=== PATIENT | female | born 1980 | race Caucasian/White ===

== ENCOUNTER 2017-08-05 10:42 | Inpatient (IN) | payer BC ==
[2017-08-05 12:39] LABS: ABS Basophils 0 10^3/ul (0-0.2); ABS Eosinophils 0.1 10^3/ul (0-0.6); ABS Lymphocytes 3.1 10^3/ul (1.0-4.8); ABS Monocytes 0.4 10^3/ul (0-0.8); ABS Neutrophils 6.9 10^3/ul (1.5-7.7); ABS Nucleated RBC 0 10^3/ul; Eosinophil % 1.3 % (0-6); Hematocrit 37 % (35-47); Hemoglobin 12.5 g/dl (12.0-16.0); Mean Corpuscular HGB Conc 33 g/dl (31-36); Mean Corpuscular Hemoglobin 27 pg (27-31); Mean Corpuscular Volume 81 fL (80-97); Mean Platelet Volume 7.4 um3 (7.4-10.4); Nucleated Red Blood Cells % 0; Platelet Count 299 10^3/ul (150-450); Red Blood Count 4.65 10^6/ul (4.0-5.4); Red Cell Distribution Width 16 % (10.5-15); White Blood Count 10.6 10^3/ul (3.5-10.8)
[2017-08-05 13:07] LABS: EGFR Non-African American 73.1 (>60)
[2017-08-05 13:38] LABS: Urine Appearance Clear; Urine Blood Negative (Negative); Urine Color Straw; Urine Ketones Negative (Negative); Urine Protein Negative (Negative); Urine Specific Gravity 1.003 (1.010-1.030); Urine Urobilinogen Negative (Negative)
[2017-08-05 14:00] LABS: INR 0.82 (0.77-1.02)
[2017-08-05] MEDS ORDERED: Al Hydrox/Mg Hydrox/Simet LIQ* 30 ML UDC PO PRN (14:19)
[2017-08-05] MEDS ORDERED: Acetaminophen TAB* 325 MG PO PRN (14:19)
[2017-08-05] MEDS ORDERED: Gadoteridol* (CONTRAST) 279.3 MG/ML 10 ML IV ONE (15:26)
--- NOTE | 2017-08-05 15:29 | ED ---
Letitia Palencia Nilda, scribed for Brenden Tirado MD on 08/05/17 at 1253 . Neurological HPI - HPI Summary HPI Summary: This patient is a 37 year old F presenting to [facility] accompanied by family with a chief complaint of constant tingling/numbness from feet to chest for the past 10 days. The patient rates the pain 2/10 in severity. Symptoms aggravated and alleviated by nothing. Patient reports fatigue, LE bilat weakness, SOB, unsteadiness, skin insensitivity to temperature, and intermittent VALDIVIA. She states that upon examination by neurologist, she had reduced reflexes. PMHx includes juvenile epilepsy (controlled with Lamictal). - History of Current Complaint Chief Complaint: EDNeurologicalDeficit Stated Complaint: NUMBNESS/WEAKNESS/FATIGUE Time Seen by Provider: 08/05/17 10:55 Hx Obtained From: Patient Onset/Duration: Sudden Onset, Started weeks ago, Still Present Timing: Constant Pain Intensity: 2 Pain Scale Used: 0-10 Numeric Character: Weak - LE, Numbness/Tingling, Sensory Loss, Other: - unsteadiness Aggravating: Nothing Alleviating: Nothing Associated Signs and Symptoms: Positive: Headache, Weakness - Allergy/Home Medications Allergies/Adverse Reactions: Allergies Allergy/AdvReac Type Severity Reaction Status Date / Time No Known Allergies Allergy Verified 08/05/17 10:51 Home Medications: Home Medications Cholecalciferol TAB* [Vitamin D TAB*] 1,000 unit PO DAILY 08/05/17 [History Confirmed 08/05/17] Cyanocobalamin TAB* [Vitamin B12 TAB*] 500 mcg PO DAILY 08/05/17 [History Confirmed 08/05/17] Ethinyl Estradiol/Drospirenone [Drospirenone/Ethinyl Estr 3-0.02 mg] 1 tab PO DAILY 08/05/17 [History Confirmed 08/05/17] Ferrous Sulfate TAB* 325 mg PO DAILY 08/05/17 [History Confirmed 08/05/17] Prazosin CAP* [Minipress CAP*] 2 mg PO BEDTIME 08/05/17 [History Confirmed 08/05] lamoTRIgine TAB(*) [LaMICtal TAB(*)] 150 mg PO BID 08/05/17 [History Confirmed 08/05/17] PMH/Surg Hx/FS Hx/Imm Hx EENT History: Denies: Hx Deafness Neurological History: Reports: Hx Seizures Infectious Disease History: Unable to Obtain/Confirm Infectious Disease History: Denies: Traveled Outside the [place] in Last 30 Days - Family History Known Family History: Positive: Hypertension Negative: Cardiac Disease Review of Systems Positive: Fatigue Positive: Shortness Of Breath Positive: Other - skin insensitivity to temperature Neurological: Other - unsteadiness Positive: Headache - intermittent, Weakness - bilat LE, Paresthesia - feet to chest, Numbness - feet to chest All Other Systems Reviewed And Are Negative: Yes Physical Exam - Summary Physical Exam Summary: Appearance: The patient is well-nourished in no acute distress and in no acute pain. Skin: The skin is warm and dry and skin color reflects adequate perfusion. HEENT: The head is normocephalic and atraumatic. The pupils are equal and reactive. The conjunctivae are clear and without drainage. Nares are patent and without drainage. Mouth reveals moist mucous membranes and the throat is without erythema and exudate. The external ears are intact. The ear canals are patent and without drainage. The tympanic membranes are intact. Neck: the neck is supple with full range of motion and non-tender. There are no carotid bruits. There is no neck vein distension. Respiratory: Chest is non-tender. Lungs are clear to auscultation and breath sounds are symmetrical and equal. Cardiovascular: Heart is regular rate and rhythm. There is no murmur or rub auscultated. There is no peripheral edema and pulses are symmetrical and equal. Abdomen: The abdomen is soft and non-tender. There are normal bowel sounds heard in all four quadrants and there is no organomegaly palpated. Musculoskeletal:Decreased reflexes. There is no back tenderness noted. Extremities are non-tender with full range of motion. There is good capillary refill. There is no peripheral edema or calf tenderness elicited. Neurological: Patient is alert and oriented to person, place and time. Decreased reflexes. Psychiatric: The patient has an appropriate affect and does not exhibit any anxiety or depression. Triage Information Reviewed: Yes Vital Signs On Initial Exam: Initial Vitals Temp Pulse Resp BP Pulse Ox 98.8 F 89 16 140/79 99 08/05/17 10:46 08/05/17 10:46 08/05/17 10:46 08/05/17 10:46 08/05/17 10:46 Vital Signs Reviewed: Yes Diagnostics - Vital Signs Vital Signs Temp Pulse Resp BP Pulse Ox 08/05/17 10:46 98.8 F 89 16 140/79 99 - Laboratory Lab Results: Lab Results 08/05/17 08/05/17 08/05/17 Range/Units 12:30 12:30 12:30 WBC 10.6 (3.5-10.8) 10^3/ul RBC 4.65 (4.0-5.4) 10^6/ul Hgb 12.5 (12.0-16.0) g/dl Hct 37 (35-47) % MCV 81 (80-97) fL MCH 27 (27-31) pg MCHC 33 (31-36) g/dl RDW 16 H (10.5-15) % Plt Count 299 (150-450) 10^3/ul MPV 7.4 (7.4-10.4) um3 Neut % (Auto) 65.2 (38-83) % Lymph % (Auto) 29.0 (25-47) % Prowers % (Auto) 4.0 (0-7) % Eos % (Auto) 1.3 (0-6) % Baso % (Auto) 0.5 (0-2) % Absolute Neuts (auto) 6.9 (1.5-7.7) 10^3/ul Absolute Lymphs (auto) 3.1 (1.0-4.8) 10^3/ul Absolute Monos (auto) 0.4 (0-0.8) 10^3/ul Absolute Eos (auto) 0.1 (0-0.6) 10^3/ul Absolute Basos (auto) 0 (0-0.2) 10^3/ul Absolute Nucleated RBC 0 10^3/ul Nucleated RBC % 0 INR (Anticoag Therapy) (0.77-1.02) Sodium 137 L (139-145) mmol/L Potassium 4.3 (3.5-5.0) mmol/L Chloride 103 (101-111) mmol/L Carbon Dioxide 24 (22-32) mmol/L Anion Gap 10 (2-11) mmol/L BUN 13 (6-24) mg/dL Creatinine 0.88 (0.51-0.95) mg/dL Est GFR ( Amer) 94.0 (>60) Est GFR (Non-Af Amer) 73.1 (>60) BUN/Creatinine Ratio 14.8 (8-20) Glucose 96 (70-100) mg/dL Lactic Acid 1.4 (0.5-2.0) mmol/L Calcium 9.4 (8.6-10.3) mg/dL Total Bilirubin 0.30 (0.2-1.0) mg/dL AST 10 L (13-39) U/L ALT 10 (7-52) U/L Alkaline Phosphatase 79 (34-104) U/L Troponin I 0.00 (<0.04) ng/mL Total Protein 7.1 (6.4-8.9) g/dL Albumin 3.9 (3.2-5.2) g/dL Globulin 3.2 (2-4) g/dL Albumin/Globulin Ratio 1.2 (1-3) Vitamin B12 279 (180-914) pg/mL TSH 2.03 (0.34-5.60) mcIU/mL Urine Color Urine Appearance Urine pH (5-9) Ur Specific Marianna (1.010-1.030) Urine Protein (Negative) Urine Ketones (Negative) Urine Blood (Negative) Urine Nitrate (Negative) Urine Bilirubin (Negative) Urine Urobilinogen (Negative) Ur Leukocyte Esterase (Negative) Urine WBC (Auto) (Absent) Urine RBC (Auto) (Absent) Ur Squamous Epith Cells (Absent) Urine Bacteria (Absent) Urine Glucose (Negative) 08/05/17 08/05/17 Range/Units 12:30 13:10 WBC (3.5-10.8) 10^3/ul RBC (4.0-5.4) 10^6/ul Hgb (12.0-16.0) g/dl Hct (35-47) % MCV (80-97) fL MCH (27-31) pg MCHC (31-36) g/dl RDW (10.5-15) % Plt Count (150-450) 10^3/ul MPV (7.4-10.4) um3 Neut % (Auto) (38-83) % Lymph % (Auto) (25-47) % Prowers % (Auto) (0-7) % Eos % (Auto) (0-6) % Baso % (Auto) (0-2) % Absolute Neuts (auto) (1.5-7.7) 10^3/ul Absolute Lymphs (auto) (1.0-4.8) 10^3/ul Absolute Monos (auto) (0-0.8) 10^3/ul Absolute Eos (auto) (0-0.6) 10^3/ul Absolute Basos (auto) (0-0.2) 10^3/ul Absolute Nucleated RBC 10^3/ul Nucleated RBC % INR (Anticoag Therapy) 0.82 (0.77-1.02) Sodium (139-145) mmol/L Potassium (3.5-5.0) mmol/L Chloride (101-111) mmol/L Carbon Dioxide (22-32) mmol/L Anion Gap (2-11) mmol/L BUN (6-24) mg/dL Creatinine (0.51-0.95) mg/dL Est GFR ( Amer) (>60) Est GFR (Non-Af Amer) (>60) BUN/Creatinine Ratio (8-20) Glucose (70-100) mg/dL Lactic Acid (0.5-2.0) mmol/L Calcium (8.6-10.3) mg/dL Total Bilirubin (0.2-1.0) mg/dL AST (13-39) U/L ALT (7-52) U/L Alkaline Phosphatase (34-104) U/L Troponin I (<0.04) ng/mL Total Protein (6.4-8.9) g/dL Albumin (3.2-5.2) g/dL Globulin (2-4) g/dL Albumin/Globulin Ratio (1-3) Vitamin B12 (180-914) pg/mL TSH (0.34-5.60) mcIU/mL Urine Color Straw Urine Appearance Clear Urine pH 7.0 (5-9) Ur Specific Marianna 1.003 L (1.010-1.030) Urine Protein Negative (Negative) Urine Ketones Negative (Negative) Urine Blood Negative (Negative) Urine Nitrate Negative (Negative) Urine Bilirubin Negative (Negative) Urine Urobilinogen Negative (Negative) Ur Leukocyte Esterase 1+ A (Negative) Urine WBC (Auto) Trace(0-5/hpf) (Absent) Urine RBC (Auto) Trace(0-2/hpf) (Absent) Ur Squamous Epith Cells Present A (Absent) Urine Bacteria Absent (Absent) Urine Glucose Negative (Negative) Result Diagrams: 08/05/17 12:30 08/05/17 12:30 Lab Statement: Any lab studies that have been ordered have been reviewed, and results considered in the medical decision making process. Course/Dx - Course Course Of Treatment: Ms. Warren was sent in by Dr. Floyd for a W/U for possible Guillan Mason. She was stable in the ED and the hospitalist service is admitting her. - Diagnoses Provider Diagnoses: Distal paresthesia - Physician Notifications Discussed Care Of Patient With: Bhaskar Richards - Hospitalist Time Discussed With Above Provider: 12:55 Instructed by Provider To: Admit As Inpatient Discharge - Sign-Out/Discharge Documenting (check all that apply): Discharge/Admit/Transfer - Discharge Plan Condition: Stable Disposition: ADMITTED TO [facility] Referrals: Rachel Gonsales MD [Primary Care Provider] - - Billing Disposition and Condition Condition: STABLE Disposition: [facility] [place] The documentation as recorded by the Letitia redman Nilda accurately reflects the service I personally performed and the decisions made by , Brenden Tirado MD.
--- NOTE | 2017-08-05 15:53 | RAD ---
HISTORY: Guillain Donie syndrome, ascending numbness COMPARISONS: March 30, 2003 TECHNIQUE: The following sequences were obtained of the head: Sagittal T1-weighted images, axial T2-weighted images, axial FLAIR images, axial susceptibility weighted images, axial T1-weighted images. Additionally, axial diffusion-weighted images were obtained with calculated apparent diffusion coefficients. Additionally, sagittal, coronal, and axial T1-weighted images were obtained after contrast enhancement with a gadolinium-based intravenous contrast agent. FINDINGS: HEMORRHAGE/INFARCT: There is no hemorrhage or acute infarct. MASSES/SHIFT: There is no mass or shift. EXTRA-AXIAL SPACES/MENINGES: There are no extra-axial fluid collections. SULCI AND VENTRICLES: The sulci and ventricles are normal in size and position for the patient's stated age. CEREBRUM: There are multiple foci of elevated T2/FLAIR signal within the periventricular and subcortical white matter, including lesions that are oriented perpendicular to the surface of the corpus callosum. Several of these lesions enhance, including a 0.9 cm lesion of the left parietal lobe. BRAINSTEM: There is a nonenhancing lesion of the right middle cerebellar peduncle on axial image 10 measuring 0.7 cm in size. CEREBELLUM: There are small enhancing foci of elevated signal within the cerebellar hemispheres bilaterally. The cerebellar tonsils are normal in size and position. SELLA: The sella is normal. PINEAL: The pineal region is clear. CP ANGLE/TEMPORAL BONES: The labyrinthine structures are grossly normal. VESSELS: Normal flow-voids are noted within the visualized vertebral vasculature. DIFFUSION ABNORMALITIES: There are no diffusion abnormalities. PARANASAL SINUSES/MASTOIDS: The paranasal sinuses are clear. ORBITS: The orbits are unremarkable. BONES AND SOFT TISSUE: No bone or soft tissue abnormalities are noted. OTHER: There is an enhancing lesion of the upper cervical cord. IMPRESSION: THERE HAS BEEN INTERVAL DEVELOPMENT OF MULTIFOCAL WHITE MATTER SIGNAL ABNORMALITIES WITHIN THE CEREBRAL HEMISPHERES, BRAINSTEM, CEREBELLUM, AND UPPER CERVICAL CORD. THE IMAGING APPEARANCE IS MOST SUGGESTIVE OF DEMYELINATING PLAQUE IN THE SETTING OF MULTIPLE SCLEROSIS. THERE ARE MULTIPLE ENHANCING LESIONS WHICH SUGGEST ACTIVE INFLAMMATION.
[2017-08-05] MEDS ORDERED: Lidocaine 1%* 5 ML VIAL ONE (15:56)
--- NOTE | 2017-08-05 16:00 | RAD ---
HISTORY: Ascending numbness COMPARISONS: MRI of the brain dated August 05, 2017 TECHNIQUE: The following sequences were obtained of the cervical spine: Sagittal and axial T1- and T2-weighted images, sagittal STIR images, and axial gradient echo images. Additionally, axial and sagittal T1 weighted images were obtained after contrast enhancement with a gadolinium-based intravenous contrast agent.. FINDINGS: BRAIN AND SPINAL CORD: There is multifocal elevated T2/STIR signal within the cervical cord, the largest lesion is noted opposite of C4 measuring approximately 0.7 cm transversely and 1 cm in craniocaudal dimension. There is an enhancing lesion of the upper cervical cord opposite of C2 measuring 0.3 x 0.8 cm in size. ALIGNMENT: There is straightening of the normal cervical lordosis. The alignment is otherwise normal. VERTEBRAL BODIES: There is mild anterolateral marginal osteophyte formation. JOINTS: There is no subluxation or dislocation. MUSCULATURE: Unremarkable INTERVERTEBRAL DISCS: There is diffuse loss of intervertebral disc height and T2 signal throughout the spine. AXIAL IMAGES: C2-C3: There is no disc herniation, spinal stenosis, or neuroforaminal narrowing. C3-C4: There is no disc herniation, spinal stenosis, or neuroforaminal narrowing. C4-C5: There is no disc herniation, spinal stenosis, or neuroforaminal narrowing. C5-C6: There is no disc herniation, spinal stenosis, or neuroforaminal narrowing. C6-C7: There is no disc herniation, spinal stenosis, or neuroforaminal narrowing. C7-T1: There is no disc herniation, spinal stenosis, or neuroforaminal narrowing. SOFT TISSUES: The visualized soft tissues of the neck are unremarkable. OTHER: None. IMPRESSION: THERE IS MULTIFOCAL ELEVATED T2/FLAIR SIGNAL WITHIN THE CERVICAL CORD, INCLUDING AN ENHANCING LESION OF SOME OF C2. GIVEN THE FINDINGS ON MRI OF THE BRAIN, THIS IS MOST SUGGESTIVE OF MULTIFOCAL DEMYELINATING PLAQUE IN THE SETTING OF MULTIPLE SCLEROSIS, WITH ENHANCEMENT SUGGESTIVE OF AN AREA OF ACTIVE INFLAMMATION.
--- NOTE | 2017-08-05 17:34 | HP ---
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 The patient was seen by Dr. Floyd (neurologist) who referred the patient to the ED for further evaluation. Diana initially experienced lower extremity numbness that was gradual in onset. The numbness then became more of a tingling and mild burning sensation that ascended towards the abdomen and pelvis region, and now in the upper extremities. She denied any focal weakness but does experience fatigue, especially the last 4-5 days. The numbness sensation is fixed and seems to be getting worst. She denied any headaches or visual disturbance. She had similar presentation in January 2017 where she felt numbness on the right side of the arm and leg. She had gait imabalnce that time for a few days and subsequently fell. She denied any loss of consciousness or headache. She thought her numbness in January spontaneously resolved after a few weeks. She was never hospitalized. Today, she denied any impairment in her bowel or bladder functions. She denied any shooting pain down her spine. She is experiencing a tight sensation around her upper to mid abdomen region which is new. She denied SOB. Of note, the patient reported seeing a tick on her leg in May that she removed. She removed the tick and did not notice a rash. She does experience dry mouth but relates that to chronic lamotrigine use. IMAGING STUDIES: An MRI brain and C spine with and without contrast was obtained today. I personally reviewed the studies. There is evidence of multifocal T2 lesions in the cerebral cortex near the juxtacortical and periventricular region, brainstem , and cervical spine with gadolinium enhancing lesions seen suggestive of active demyelination. There is no evidence of stroke or large neoplastic lesions. She also has areas of T1 holes seen diffusely, largest one near the left occipital horn. 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 - Medications/Allergies Allergies/Adverse Reactions: Allergies Allergy/AdvReac Type Severity Reaction Status Date / Time No Known Allergies Allergy Verified 08/05/17 10:51 Medications: Current Medications Acetaminophen (Tylenol Tab*) 650 mg PO Q4H PRN PRN Reason: FEVER/PAIN Al Hydrox/Mg Hydrox/Simethicone (Maalox Plus*) 30 ml PO Q6H PRN PRN Reason: INDIGESTION Ethinyl Estradiol/Drospirenone (Loryna 3 Mg-0.02 Mg Tablet) 1 each PO DAILY [facility] Methylprednisolone Sodium Succinate 1,000 mg/ Sodium Chloride 1,000 mls @ 100 mls/hr IVPB DAILY EMIGDIO Stop: 08/07/17 23:59 Lamotrigine (Lamictal Tab(*)) 150 mg PO BID EMIGDIO Pantoprazole Sodium (Protonix Tab (Nf)) 40 mg PO DAILY EMIGDIO Prazosin HCl (Minipress Cap*) 2 mg PO BEDTIME EMIGDIO Exam - Exam Vital Signs: Vital Signs (72 hours) 08/05/17 08/05/17 08/05/17 10:46 12:34 12:35 Temperature 98.8 F Pulse Rate 89 90 95 Respiratory 16 Rate Blood Pressure 140/79 158/79 (mmHg) O2 Sat by Pulse 99 94 96 Oximetry 08/05/17 08/05/17 08/05/17 13:00 13:35 14:00 Temperature Pulse Rate 86 95 91 Respiratory Rate Blood Pressure 150/98 (mmHg) O2 Sat by Pulse 96 96 96 Oximetry 08/05/17 08/05/17 08/05/17 14:05 16:25 16:26 Temperature Pulse Rate 90 91 94 Respiratory Rate Blood Pressure 182/155 143/86 (mmHg) O2 Sat by Pulse 97 96 96 Oximetry General: Alert, Oriented x3, Cooperative, No acute distress HEENT: Atraumatic, PERRLA, EOMI Lungs: Clear to auscultation, Normal air movement Cardiovascular: Regular rate, Normal S1, Normal S2 Abdomen: Normal bowel sounds, Soft Extremities: No clubbing, No cyanosis, No tenderness/swelling Skin: No rashes Neurological: Normal gait, Normal speech, Strength at 5/5 X4 ext - 5/5 strength throughout except for 4/5 strength to dorsal flexion of the ankle on the left. , Normal tone, Cranial nerves 3-12 NL - Reflexes: trace throughout could be due to adiposity. Sensation: sensory level at the mid thoracic region. There is normal vibratory sensation and propioception at the toes. , Other Psych/Mental Status: Mental status NL, Mood NL Assessment/Plan - Assessment/Plan Assessment: Mrs. Diana Warren is a 37-year-old female with a 10 day history of generalized paresthesias and fatigue. She also complained of gait imbalance and an episode of self limiting right sara-paresthesias in January 2017. On neurological examination, she has a sensory level in the mid thoracic region and mild weakness to left ankle dorsiflexion. Surprisingly, she has no evidence of upper motor neuron signs. MRIs brain and C spine showed evidence of underlying chronic on acute demyelinating disease. Given the patient's age, clinical history, and radiographic findings, I suspect she has underlying demyelinating disease such as relapsing-remitting multiple sclerosis with current having a flare-up. Other differential diagnosis to include would be autoimmune disease such as lupus or Sjogrens, Devic's disease (less likely since she has no visual disturbance), or lyme disease (also less likely since she has no symptoms of radiculopathy or findings of neuropathy on exam). The patient does meet the Conn's criteria for dissemination in time and space given the T1 holes, supra-tentorial and infratentorial lesions, and cervical spine lesions. The enhancement suggests acute and active lesions. Plan: I recommend admitting the patient to the hospitalist service for evaluation and treatment of relapsing-remitting multiple sclerosis. MS mimickers will need to be excluded. I have ordered the followin. Added to the CSF analysis: oligoclonal bands, IGG index, VDRL, NARESH, NMO, and Lyme IGG/IGM 2. I also ordered the following labs: vitamin B12, vitamin D (most common environmental factor to MS), ESTRELLA, SSA, SSB, and serum oligoclonal bands. 3. Since she has a sensory level in the mid thoracic region, I ordered an MRI T Spine with and without contrast to evaluate for any demyelination in the T spine. 4. Start Solu-medrol 1,000 mg IV x 1 daily for 3 days. If symptoms do not improve, we may increase it to 5 days. Explained the side effects of steroids. 5. Started protonix 40 mg PO daily while on steroids 6. Please start DVT prophylaxis 7. Neuro checks every 4 hours 8. Discussed fall precautions I will continue to follow. 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
[2017-08-05] MEDS: Omeprazole CAP* 20 MG PO SCH (19:35)
[2017-08-05] MEDS: methylPREDNISolone SOD SUCC* 1,000 MG in NS 0.9% 1000 ML* 1,000 ML IVPB SCH (19:36)
[2017-08-05] MEDS: lamoTRIgine TAB(*) 100 MG PO SCH (22:35)
[2017-08-05] MEDS: Prazosin CAP* 1 MG PO SCH (22:36)
[2017-08-06] MEDS: Ibuprofen TAB* 400 MG PO PRN ×3 (00:09→20:53)
[2017-08-06] MEDS: Zolpidem TAB* 5 MG PO PRN ×2 (00:09→22:48)
--- NOTE | 2017-08-06 01:05 | HP ---
CC: Dr. Gonsales * HISTORY AND PHYSICAL: DATE OF ADMISSION: 08/05/17 PROVIDER: Zena Easton NP. PRIMARY CARE PROVIDER: Dr. Gonsales. ATTENDING PHYSICIAN WHILE IN THE HOSPITAL: Dr. Bhaskar Richards * (dictated by Zena Easton NP). CHIEF COMPLAINT: 1. Numbness and tingling to extremities. 2. Rule out Guillain-Eddyville syndrome. HISTORY OF PRESENT ILLNESS: Ms. Warren is a 37-year-old female who carries a past medical history of juvenile epilepsy, who presented to the emergency room after being evaluated at Dr. Floyd's office today for generalized numbness and tingling to extremities, waist that has progressively gotten worse since . The patient reports that on 07/26/17, she had numbness and tingling in her finger and toes and then on 07/27/17 and 07/28/17, it started to spread upper legs and upper arms and progressed to upper body to reaching the base of her neck. She does report that she sometimes feels like her neck and throat feel numb. For these symptoms, she was seen and evaluated at Dr. Floyd's office, who felt that she needed to have further evaluation hospital admission to rule out Guillain-Eddyville syndrome, so she was sent to the hospital for further evaluation. She denies any fevers. She denies any recent illnesses. Denies any recent sick contacts. She does report that she felt a little sweaty at night for the past couple of nights. She denies any nausea, vomiting, or diarrhea. She denies any abdominal pain. She denies any chest pain or shortness of breath. She denies any dysuria, loss of consciousness. Given her progressive symptoms of increased numbness and tingling to her extremities, we were asked to see and evaluate her because of these symptoms. PAST MEDICAL HISTORY: Significant for juvenile epilepsy. PAST SURGICAL HISTORY: 1. Appendectomy. 2. Cholecystectomy. 3. Tonsillectomy. HOME MEDICATIONS: Include: 1. Lamictal 150 mg p.o. b.i.d. 2. Prazosin 2 mg p.o. at bedtime. 3. Keturah control pill. ALLERGIES TO MEDICATIONS: No known drug allergies. FAMILY HISTORY: Mother and father with history of hypertension. Grandmother with history of diabetes, cancer. Grandmother had possible cervical cancer. SOCIAL HISTORY: Denies tobacco use. Denies alcohol or drug use. She currently works for [employer]. She is single. She is a full code. Surrogate decision maker are her parents, Devi Warren. Her phone number is [phone]. REVIEW OF SYSTEMS: There was no documented fever. There has been no significant weight change. She does report some loss of appetite x1 week. She denies any chest pain. No edema. She does report occasional cough that is nonproductive. Denies any hemoptysis or shortness of breath. She does report mild nausea. Denies any vomiting. Denies diarrhea. Denies any abdominal pain. There has been no hematuria or dysuria. She does report some weakness into her lower extremities and some numbness and tingling in all 4 extremities that has progressed since 07/26/17. She denies any visual complaints. She does report one episode of difficulty swallowing. She reports that she felt like she needed to swallow twice to swallow her food but that episode has only occurred twice. Musculoskeletal: She does report some joint aches. She denies any muscle aches. Skin: There is no rashes or lesions. She denies any depression or anxiety. PHYSICAL EXAMINATION GENERAL: At this time, Ms. Warren is a 37-year-old female who appears well, sitting on the edge of the stretcher in the emergency room. She does not appear to be in any acute distress. VITAL SIGNS: Temperature was 98.8, heart rate was 89, respirations 16, O2 saturation was 99% on room air, blood pressure 140/79. HEENT: Head is atraumatic, normocephalic. Eyes: EOMs are intact. Sclerae anicteric and not pale. Oral mucosa appears to be moist. There is no oropharyngeal erythema. NECK: Supple. LUNGS: Clear to auscultation bilaterally. No wheezes, rales, or rhonchi. CARDIAC: S1, S2. Regular rate and rhythm. There is no murmurs, rubs, or gallops. ABDOMEN: Soft and nontender. Bowel sounds are present x4. EXTREMITIES: Pulses are +2 throughout. She is able to move all 4 extremities. Upper extremity strength is 5/5. Lower extremity strength is 4/5. NEUROLOGIC: She is awake, alert, and oriented x3. Hand dovetailer are equal. Tongue is midline. Speech is clear. She does have decreased reflexes in her lower extremities. SKIN: Intact. DIAGNOSTIC STUDIES AND LABORATORY DATA: WBCs 10.6, RBCs 4.65, hemoglobin 12.5 , hematocrit was 37, platelet count was 299. INR was 0.82. Chemistry: Sodium 137, potassium 4.3, chloride 103, carbon dioxide was 24, BUN was 13, creatinine 0.88, glucose is 96, lactic acid was 1.4, calcium 9.4. Total bilirubin 0.30, ASTs were 10, ALTs were 10. Troponin was 0. TSH was 2.03. Urine specific gravity was 1.003; urine protein, urine ketones, urine blood, urine nitrites, urine bilirubin, and urine urobilinogen were all negative. Urine leukocyte esterase was 1+. Urine wbc's were trace, urine rbc's were trace. Urine squamous epithelial cells present. Bacteria was absent and glucose was also negative. ASSESSMENT AND PLAN: Ms. Warren is a 37-year-old female that presented to the emergency room after being evaluated at Dr. Floyd's office for generalized numbness and tingling to her extremities that has progressively gotten worse since 07/26/17. She was sent for further evaluation. She will be admitted for: 1. Rule out Guillain-Eddyville syndrome. She will have an MRI of the brain and MRI of the C-spine. She will also have an LP completed with cultures, protein, glucose, and cell count. Neurology was also consulted. is aware. Recommendations will be appreciated. She will be admitted to the medical floor and observed, and proceed with Neurology's recommendations. 2. Epilepsy. We will continue on her Lamictal 150 mg p.o. b.i.d. 3. FEN. She can have a regular diet. 4. Code status. She is a full code. 5. DVT prophylaxis. I will place her on MATTEO stocking and ambulation. 6. Disposition. She will be placed inpatient. TIME SPENT: Time spent on this admission was approximately 6 minutes; greater than half the time was spent [id number] with the patient, obtaining history and physical, the other half time was spent going over the patient's plan of care and implementing that plan of care. I have discussed this with my attending, Dr. Bhaskar Richards, and he is in agreement with my plan. ZENA EASTON, PET ADOPTION COUNSELOR [id number]/[facility] #: [id number] [facility]OSPITALJose Alberto
[2017-08-06 06:43] LABS: ABS Basophils 0 10^3/ul (0-0.2); ABS Eosinophils 0 10^3/ul (0-0.6); ABS Lymphocytes 1.5 10^3/ul (1.0-4.8); ABS Monocytes 0 10^3/ul (0-0.8); ABS Neutrophils 7.1 10^3/ul (1.5-7.7); ABS Nucleated RBC 0 10^3/ul; Eosinophil % 0 % (0-6); Hematocrit 40 % (35-47); Lymphocyte % 17.2 % (25-47); Mean Corpuscular HGB Conc 33 g/dl (31-36); Mean Corpuscular Hemoglobin 26 pg (27-31); Mean Corpuscular Volume 81 fL (80-97); Mean Platelet Volume 7.9 um3 (7.4-10.4); Nucleated Red Blood Cells % 0; Platelet Count 319 10^3/ul (150-450); Red Blood Count 4.94 10^6/ul (4.0-5.4); Red Cell Distribution Width 16 % (10.5-15); White Blood Count 8.6 10^3/ul (3.5-10.8)
[2017-08-06 07:06] LABS: EGFR Non-African American 82.8 (>60)
[2017-08-06] MEDS: lamoTRIgine TAB(*) 100 MG PO SCH ×2 (08:27→20:25)
[2017-08-06] MEDS: Omeprazole CAP* 20 MG PO SCH (08:27)
[2017-08-06] MEDS: methylPREDNISolone SOD SUCC* 1,000 MG in NS 0.9% 1000 ML* 1,000 ML IVPB SCH (09:14)
[2017-08-06] MEDS ORDERED: Nystatin TOP POWDER* 15 GM BTL TOPICAL SCH (10:30)
[2017-08-06] MEDS ORDERED: Gadoteridol* (CONTRAST) 279.3 MG/ML 10 ML IV ONE (11:51)
--- NOTE | 2017-08-06 13:13 | RAD ---
HISTORY: Paresthesias of chest and abdomen COMPARISONS: MRI of the cervical spine dated August 05, 2017, MRI of the brain dated August 05, 2017 TECHNIQUE: The following sequences were obtained of the thoracic spine: Sagittal and axial T1- and T2-weighted images, coronal T2-weighted images, and sagittal STIR images. Additionally, axial and sagittal T1 weighted images were obtained after contrast enhancement with a gadolinium-based intravenous contrast agent.. FINDINGS: Evaluation limited by patient motion artifact. Localization is based on counting from C2 SPINAL CORD, CONUS, AND CAUDA EQUINA: The visualized spinal cord, conus, and cauda equina are normal in caliber, position, and signal intensity. There is mild prominence of the central canal without marilyn syringohydromyelia. ALIGNMENT: The alignment is normal. VERTEBRAL BODIES: The bones are normal in signal intensity. The vertebral bodies are preserved in height. JOINTS: There is no subluxation or dislocation. MUSCULATURE: Unremarkable INTERVERTEBRAL DISCS: The intervertebral discs are normal in height and T2 signal AXIAL IMAGES: There is no central canal stenosis or neuroforaminal narrowing. SOFT TISSUES: The visualized soft tissues of the chest and upper abdomen are unremarkable. OTHER: There is no abnormal enhancement. As noted on the MRI of the cervical spine, there is elevated signal within the cervical cord. IMPRESSION: NO ABNORMAL SIGNAL OR ABNORMAL ENHANCEMENT OF THE THORACIC CORD. NO SIGNIFICANT NEURAL FORAMINAL NARROWING OR CENTRAL CANAL STENOSIS.
--- NOTE | 2017-08-06 14:51 | PN ---
Subjective Date of Service: 08/06/17 Interval History: Patient has persistent numbness and tingling in arms and weakness in lags. Has constrictive feeling around abdomen which has not been getting worse or better. Patient states she has been having subjective fevers for the past couple days including most recently last evening. No reaction to steroids. No Cp, SOB, N/V, abdominal pain, dysuria, rash, or other pain. Family History: Unchanged from Admission Social History: Unchanged from Admission Past Medical History: Unchanged from Admission Objective Active Medications: Acetaminophen (Tylenol Tab*) 650 mg PO Q4H PRN PRN Reason: FEVER/PAIN Last Admin: 08/05/17 21:04 Dose: 650 mg Al Hydrox/Mg Hydrox/Simethicone (Maalox Plus*) 30 ml PO Q6H PRN PRN Reason: INDIGESTION Ethinyl Estradiol/Drospirenone (Loryna 3 Mg-0.02 Mg Tablet) 1 each PO BEDTIME [facility] Guaifenesin (Mucinex*) 600 mg PO BID [facility] Methylprednisolone Sodium Succinate 1,000 mg/ Sodium Chloride 1,000 mls @ 100 mls/hr IVPB DAILY [facility] Stop: 08/07/17 23:59 Last Admin: 08/06/17 09:14 Dose: 100 mls/hr Ibuprofen (Motrin Tab*) 400 mg PO Q6H PRN PRN Reason: PAIN Last Admin: 08/06/17 12:26 Dose: 400 mg Lamotrigine (Lamictal Tab(*)) 150 mg PO BID [facility] Last Admin: 08/06/17 08:27 Dose: 150 mg Omeprazole (Prilosec Cap*) 20 mg PO DAILY@0730 [facility] Last Admin: 08/06/17 08:27 Dose: 20 mg Prazosin HCl (Minipress Cap*) 2 mg PO BEDTIME [facility] Last Admin: 08/05/17 22:36 Dose: 2 mg Zolpidem Tartrate (Ambien Tab*) 5 mg PO BEDTIME PRN PRN Reason: INSOMNIA Last Admin: 08/06/17 00:09 Dose: 5 mg Vital Signs - 8 hr 08/06/17 08/06/17 08/06/17 07:31 08:34 13:46 Temperature 97.7 F 98.1 F Pulse Rate 97 72 Respiratory 16 16 16 Rate Blood Pressure 134/83 125/76 (mmHg) O2 Sat by Pulse 96 98 Oximetry Oxygen Devices in Use Now: None Appearance: Patient is a 37yo female who appears stated age and is sitting in the bed in NAD. Eyes: No Scleral Icterus, PERRLA Ears/Nose/Mouth/Throat: NL Teeth, Lips, Gums, Clear Oropharnyx, Mucous Membranes Moist Neck: NL Appearance and Movements; NL JVP, Trachea Midline Respiratory: Symmetrical Chest Expansion and Respiratory Effort, Clear to Auscultation Cardiovascular: NL Sounds; No Murmurs; No JVD, RRR, No Edema Abdominal: NL Sounds; No Tenderness; No Distention, No Hepatosplenomegaly Lymphatic: No Cervical Adenopathy Extremities: No Edema, No Clubbing, Cyanosis Skin: No Rash or Ulcers, No Nodules or Sclerosis Neurological: Alert and Oriented x 3, - - CN II-XII intact. Diminished sensation on right arm to light touch. 4/5 weakness in left leg in all muscle groups. Reflexes and cerebellar testing unremarkable. Result Diagrams: 08/06/17 05:57 08/06/17 05:57 Additional Lab and Data: Lab Results 08/05/17 08/05/17 08/05/17 Range/Units 12:30 12:30 12:30 WBC 10.6 (3.5-10.8) 10^3/ul RBC 4.65 (4.0-5.4) 10^6/ul Hgb 12.5 (12.0-16.0) g/dl Hct 37 (35-47) % MCV 81 (80-97) fL MCH 27 (27-31) pg MCHC 33 (31-36) g/dl RDW 16 H (10.5-15) % Plt Count 299 (150-450) 10^3/ul MPV 7.4 (7.4-10.4) um3 Neut % (Auto) 65.2 (38-83) % Lymph % (Auto) 29.0 (25-47) % Yates % (Auto) 4.0 (0-7) % Eos % (Auto) 1.3 (0-6) % Baso % (Auto) 0.5 (0-2) % Absolute Neuts (auto) 6.9 (1.5-7.7) 10^3/ul Absolute Lymphs (auto) 3.1 (1.0-4.8) 10^3/ul Absolute Monos (auto) 0.4 (0-0.8) 10^3/ul Absolute Eos (auto) 0.1 (0-0.6) 10^3/ul Absolute Basos (auto) 0 (0-0.2) 10^3/ul Absolute Nucleated RBC 0 10^3/ul Nucleated RBC % 0 INR (Anticoag Therapy) (0.77-1.02) Sodium 137 L (139-145) mmol/L Potassium 4.3 (3.5-5.0) mmol/L Chloride 103 (101-111) mmol/L Carbon Dioxide 24 (22-32) mmol/L Anion Gap 10 (2-11) mmol/L BUN 13 (6-24) mg/dL Creatinine 0.88 (0.51-0.95) mg/dL Est GFR ( Amer) 94.0 (>60) Est GFR (Non-Af Amer) 73.1 (>60) BUN/Creatinine Ratio 14.8 (8-20) Glucose 96 (70-100) mg/dL Lactic Acid 1.4 (0.5-2.0) mmol/L Calcium 9.4 (8.6-10.3) mg/dL Total Bilirubin 0.30 (0.2-1.0) mg/dL AST 10 L (13-39) U/L ALT 10 (7-52) U/L Alkaline Phosphatase 79 (34-104) U/L Troponin I 0.00 (<0.04) ng/mL Total Protein 7.1 (6.4-8.9) g/dL Albumin 3.9 (3.2-5.2) g/dL Globulin 3.2 (2-4) g/dL Albumin/Globulin Ratio 1.2 (1-3) Vitamin B12 279 (180-914) pg/mL TSH 2.03 (0.34-5.60) mcIU/mL Urine Color Urine Appearance Urine pH (5-9) Ur Specific Chester (1.010-1.030) Urine Protein (Negative) Urine Ketones (Negative) Urine Blood (Negative) Urine Nitrate (Negative) Urine Bilirubin (Negative) Urine Urobilinogen (Negative) Ur Leukocyte Esterase (Negative) Urine WBC (Auto) (Absent) Urine RBC (Auto) (Absent) Ur Squamous Epith Cells (Absent) Urine Bacteria (Absent) Urine Glucose (Negative) 08/05/17 08/05/17 Range/Units 12:30 13:10 WBC (3.5-10.8) 10^3/ul RBC (4.0-5.4) 10^6/ul Hgb (12.0-16.0) g/dl Hct (35-47) % MCV (80-97) fL MCH (27-31) pg MCHC (31-36) g/dl RDW (10.5-15) % Plt Count (150-450) 10^3/ul MPV (7.4-10.4) um3 Neut % (Auto) (38-83) % Lymph % (Auto) (25-47) % Yates % (Auto) (0-7) % Eos % (Auto) (0-6) % Baso % (Auto) (0-2) % Absolute Neuts (auto) (1.5-7.7) 10^3/ul Absolute Lymphs (auto) (1.0-4.8) 10^3/ul Absolute Monos (auto) (0-0.8) 10^3/ul Absolute Eos (auto) (0-0.6) 10^3/ul Absolute Basos (auto) (0-0.2) 10^3/ul Absolute Nucleated RBC 10^3/ul Nucleated RBC % INR (Anticoag Therapy) 0.82 (0.77-1.02) Sodium (139-145) mmol/L Potassium (3.5-5.0) mmol/L Chloride (101-111) mmol/L Carbon Dioxide (22-32) mmol/L Anion Gap (2-11) mmol/L BUN (6-24) mg/dL Creatinine (0.51-0.95) mg/dL Est GFR ( Amer) (>60) Est GFR (Non-Af Amer) (>60) BUN/Creatinine Ratio (8-20) Glucose (70-100) mg/dL Lactic Acid (0.5-2.0) mmol/L Calcium (8.6-10.3) mg/dL Total Bilirubin (0.2-1.0) mg/dL AST (13-39) U/L ALT (7-52) U/L Alkaline Phosphatase (34-104) U/L Troponin I (<0.04) ng/mL Total Protein (6.4-8.9) g/dL Albumin (3.2-5.2) g/dL Globulin (2-4) g/dL Albumin/Globulin Ratio (1-3) Vitamin B12 (180-914) pg/mL TSH (0.34-5.60) mcIU/mL Urine Color Straw Urine Appearance Clear Urine pH 7.0 (5-9) Ur Specific Chester 1.003 L (1.010-1.030) Urine Protein Negative (Negative) Urine Ketones Negative (Negative) Urine Blood Negative (Negative) Urine Nitrate Negative (Negative) Urine Bilirubin Negative (Negative) Urine Urobilinogen Negative (Negative) Ur Leukocyte Esterase 1+ A (Negative) Urine WBC (Auto) Trace(0-5/hpf) (Absent) Urine RBC (Auto) Trace(0-2/hpf) (Absent) Ur Squamous Epith Cells Present A (Absent) Urine Bacteria Absent (Absent) Urine Glucose Negative (Negative) Microbiology and Other Data: Microbiology 08/05/17 16:22 CSF Gram Stain (Tube 3) - Final Cerebral Spinal Fluid CSF Culture - Preliminary No Growth Day 1 Assess/Plan/Problems-Billing Assessment: Patient is a 37yo female with a PMH for obesity and Epilepsy who presents with numbness and tingling and likely has MS based on MRI findings who is admitted for IV solumedrol and testing. - Patient Problems (1) Multiple sclerosis Current Visit: Yes Status: Acute Code(s): G35 - MULTIPLE SCLEROSIS SNOMED Code(s): 41003800 Comment: Appreciate Neurology input. Meets Conn Criteria. Minimal neurological deficits, likely relapsing remitting, will need further observation to confirm this diagnosis. DMARD therapy to be determined outpatient. Oligoclonal bands and other CSF lab work pending. Continue Solumedrol 1g IV daily for at least 1 more day. (2) Epilepsy Current Visit: Yes Status: Acute Code(s): G40.909 - EPILEPSY, UNSP, NOT INTRACTABLE, WITHOUT STATUS EPILEPTICUS SNOMED Code(s): 22536994 Comment: Continue Lamictal. (3) Full code status Current Visit: Yes Status: Acute Code(s): Z78.9 - OTHER SPECIFIED HEALTH STATUS SNOMED Code(s): 462295570 (4) DVT prophylaxis Current Visit: Yes Status: Acute Code(s): HZP9207 - SNOMED Code(s): 146515322 Comment: SCDs, Ambulation Status and Disposition: Admitted inpatient for IV steroids.
[2017-08-06] MEDS: guaiFENesin ER TAB 600 MG PO SCH ×2 (15:20→20:26)
[2017-08-06] MEDS: Prazosin CAP* 1 MG PO SCH (20:26)
[2017-08-06] MEDS ORDERED: DROSPIRENONE PO SCH (21:00)
[2017-08-06] MEDS ORDERED: ETHINYL ESTRADIOL PO SCH (21:00)
--- NOTE | 2017-08-06 22:27 | PN ---
PROGRESS NOTE: DATE OF SERVICE: 08/06/17 SUBJECTIVE: Neurology is following for the evaluation of demyelinating disease. The patient is receiving the second dose of steroids today. She has tolerated the Solu-Medrol without any reported side effects. She denied any headaches or visual disturbance. She has improved numbness and tingling sensation on the right side, but still persistent fixed numbness sensation on the left arm and left leg sparing the left face. She has been trying to walk around the hallway. She had her thoracic spine MRI done today. The patient also added that on July 2015, she did come in the emergency room for an evaluation of numbness and tingling sensation of her hands. She was given a vitamin B12 injection and was sent home. She stated that the paresthesias did improve after a few weeks. Reviewing the laboratory information: ESR was slightly elevated at 33. UA was unremarkable. Vitamin B12 is 279. TSH is 2.03. Please add the patient's medications. REVIEW OF SYSTEMS: She denied any headaches, visual disturbance, chest pain, shortness of breath, or palpitations. She denied any swelling in the lower extremity. PHYSICAL EXAMINATION: Please add vitals and general physical examination that includes general, head, eyes, neck, lungs, cardiovascular, and extremities. Neurological Examination: Mental Status: Awake and alert to person, place, time, and general circumstances. Cranial Nerves: Pupils are equal, round and reactive to light. Extraocular muscles are intact. There is no afferent pupillary defect. Motor Examination: No abnormal movements. No pronator drift. 5/5 throughout. Reflexes trace throughout the upper and lower extremities. Sensation: Decreased sensation to light touch and temperature on the left arm and left leg in a nondermatomal distribution. Normal vibratory and proprioception at the toes. Coordination: Normal [id number] and heel-to -silverio testing bilaterally. Gait: Wide based with no ataxia. IMAGING STUDIES: Thoracic spine MRI with and without contrast was personally reviewed. There is central T2 hyperintensities in the central cord measuring approximately 2-3 vertebral levels. We are pending the final MRI read by the radiologist. ASSESSMENT: This is a pleasant 37-year-old female with a 10-day history of paresthesias. She was found to have an abnormal MRI of the brain and cervical spine that was suggestive of an underlying demyelinating disease process. Based on her examination and clinical history, I suspect the patient does have multiple sclerosis. We are pending further laboratory evaluation and testing. Pending laboratory values at this time include: Oligoclonal bands, vitamin D, ESTRELLA, CSF angiotensin-converting enzyme, CSF IgG routine, CSF Lyme disease IgG and IgM, CSF VDRL, NMO-IgG evaluation, SSA and SSB. 1. The patient is tolerating Solu-Medrol 1000 mg that will probably give for a total of 3 days, so last day would be tomorrow. 2. Lower normal vitamin B12 level. 3. History of juvenile myoclonic epilepsy. PLAN: We will continue one more dose of Solu-Medrol tomorrow. Please obtain an Accu-Chek to check the patient's blood glucose at least in the morning and in the evening. I started cyanocobalamin 1000 mcg oral supplementation. Continue lamotrigine 150 mg b.i.d. Continue omeprazole 20 mg daily. Seizure precautions and neuro checks every 4 hours. TIME SPENT: A 25 minutes was spent examining the patient and reviewing the radiological studies. She will need to follow up as an outpatient after tomorrow if she continues to do well. [id number]/[facility] #: [id number] [facility]
[2017-08-07 05:49] LABS: EGFR Non-African American 77.2 (>60)
[2017-08-07] MEDS: methylPREDNISolone SOD SUCC* 1,000 MG in NS 0.9% 1000 ML* 1,000 ML IVPB SCH (08:16)
[2017-08-07] MEDS: lamoTRIgine TAB(*) 100 MG PO SCH (08:18)
[2017-08-07] MEDS: Omeprazole CAP* 20 MG PO SCH (08:18)
[2017-08-07] MEDS: guaiFENesin ER TAB 600 MG PO SCH (08:19)
[2017-08-07 14:55] LABS: CSF VDRL Negative (Negative)
[2017-08-07] MEDS ORDERED: methylPREDNISolone SOD SUCC* 1,000 MG in NS 0.9% 1000 ML* 1,000 ML IVPB SCH (15:14)
[2017-08-07] MEDS ORDERED: Cholecalciferol TAB* 1000 UNITS PO ONE (16:21)
[2017-08-07 17:32] VITALS: BP 145/89
--- NOTE | 2017-08-08 10:36 | PN ---
NEUROLOGY PROGRESS NOTE: DATE OF VISIT: 08/07/17 HISTORY OF PRESENT ILLNESS: Neurology is following for the evaluation of treatment of demyelinating disease. Subjective: The patient is doing well. She is receiving the third dose of Solu- Medrol. She is tolerating the dose fairly well without any evidence of lower extremity edema, hallucinations, or irritability. She typically has trouble sleeping at night and has been using Ambien. The numbness in her feet has completely resolved. However, she continues to have numbness in the left arm and left hand. The "MS hujuno" that she was describing has significantly improved and she is only feeling numbness on the left side of the flank. LABORATORY VALUES: CSF IgG index abnormal at 1.14. ESTRELLA negative. SSA negative. SSB negative. Pending: oligoclonal bands, vitamin D, CSF angiotensin- converting enzymes, CSF, Lyme disease, CSF VDRL, NMO-IgG. PHYSICAL EXAMINATION: Vitals: Temperature 99, pulse 110, respirations 17, oxygen 96%, blood pressure 137/59. General: Obese female in no acute distress. Cardiovascular: Regular rate and rhythm with no murmurs. Pulmonary: Clear to auscultation bilaterally. Extremities: No cyanosis or edema.Neurologic: Mental status awake and alert to person, place, time, and general circumstance. Cranial nerves: Pupils are equal, round, and reactive to light and extraocular muscles are intact. There is no afferent pupillary defect. Motor Examination: No abnormal movements. No pronator drift. 5/5 throughout. Reflexes trace throughout the upper and lower extremities. Sensation: Decreased sensation to light touch and temperature on the left arm and left hand in a nondermatomal distribution. Normal vibratory and proprioception at the toes. Coordination: Normal pbjlwy-wp-[id number] and heel-to- silverio testing bilaterally. Gait: Wide based gait with no ataxia. IMAGING STUDIES: Thoracic spine MRI with and without contrast showed a possible hyperintensity T2 lesion measuring 2-3 vertebrae at the level of T6- T8. This was likely motion artifact vs demyelinated lesion. Rhe final radiology report was dictated and apparently there was no acute T2 abnormalities or enhancing lesions. ASSESSMENT: Ms. Warren is a pleasant 37-year-old female with history of paresthesias and suspected underlying demyelinating disease such as relapsing remitting multiple sclerosis. She also has low normal vitamin b12 and history of BHAVYA. She continues to improve slowly with IV Solu-Medrol. Today is day 3. We have decided to only treat for 3 days as the patient would like to go home and is already finding some relief with the steroids. We are still pending laboratory values as mentioned above. Please start prednisone taper of 60 mg for 3 days, 40 mg for 3 days, 20 mg for 3 days, and 10 mg for 3 days. In addition, she should continue taking cyanocobalamin 1000 mcg daily. She should continue her vitamin D supplements. We are pending the vitamin D level. Continue lamotrigine 150 mg twice daily. Continue omeprazole 20 mg daily until she is off the prednisone taper. The patient again would like to go home today and she is cleared from the neurology stand-point. She needs to follow up with our neurologist within the next 4-6 weeks. I encouraged the patient to have followup imaging of the brain and cervical spine at least within 3 months after starting a disease modifying therapy, especially if the oligoclonal bands are positive. [id number]/[facility] #: [id number] [facility]ITALJose Alberto
--- NOTE | 2017-08-09 02:37 | DS ---
CC: Dr. Felix Floyd of Neurology * DISCHARGE SUMMARY: DATE OF ADMISSION: 08/05/17 DATE OF DISCHARGE: 08/07/17 PRIMARY CARE PROVIDER: Dr. Rachel Gonsales. MY ATTENDING WHILE IN THE HOSPITAL: Dago Penaloza MD * (DICTATED BY KADIE HERNANDEZ) CONSULTING NEUROLOGIST: Malika Gale MD. Please see hospital chart of him. PRIMARY DISCHARGE DIAGNOSIS: New onset multiple sclerosis. SECONDARY DISCHARGE DIAGNOSIS: History of juvenile epilepsy. STUDIES DONE WHILE IN THE HOSPITAL: Brain MRI from 08/05/17 read as there has been interval development of multifocal white matter signal abnormalities within the cerebral hemispheres, brainstem, cerebellar and up to the cervical cord. The imaging appearance is more suggestive of demyelinating plaque in the setting of multiple sclerosis and multiple enhancing lesions, which suggest active inflammation. Cervical spine MRI from 08/05/17 read as multifocal elevated T2-4 signal in the cervical cord including enhancing lesion of some of C2. Given the findings on the MRI of the brain, this is more suggestive of multifocal demyelinating plaque in the setting of multiple sclerosis with enhancement suggestive of an area of active inflammation. Thoracic spine MRI from 08/06/17 read as no abnormal signal or abnormal enhancement of thoracic cord, no significant neuroforaminal narrowing or central canal stenosis. Review from consulting neurologist brought a possibility of lesion in the central thoracic cord. MEDICATIONS AT DISCHARGE: 1. Ferrous sulfate 325 mg p.o. daily. 2. Vitamin B12 500 mcg p.o. daily. 3. Vitamin D 1000 units p.o. daily. 4. Lamotrigine 150 mg p.o. b.i.d. 5. Prazosin 2 mg p.o. at bedtime. 6. Ethinyl estradiol drospirenone 3.02 one tab p.o. daily. 7. Tylenol 650 mg p.o. q.4 hours as needed. 8. Guaifenesin 600 mg p.o. b.i.d. 9. Ambien 5 mg p.o. at bedtime. 10. Prednisone 60 mg p.o. daily with taper. 11. Vitamin D3 500 units p.o. daily. New medications on discharge: 1. Guaifenesin. 2. Ambien. 3. Prednisone. 4. Vitamin D3. Medications discontinued on discharge: 1. Vitamin D 1000 units p.o. daily, which the patient was not taking. HOSPITAL COURSE: This is a brief summary of the patient's presentation. For more details, please see the history and physical from Zena Easton NP on 08/05/17. In brief, the patient is a 37-year-old female with medical history significant for the above, who presented after referral from her neurologist for generalized numbness and tingling in her extremities, which has gotten worse since 07/26/17. This progressed through her upper arms and legs and reached the base of her neck. She felt constriction around her abdomen and felt like her neck and throat was numb at times. She had no fevers, recent illnesses , no sick contacts, no nausea, vomiting diarrhea or other signs of infection. The patient was admitted to the hospital, had imaging as above consistent with MS. There was concern for Guillian- Ceres syndrome, which was not likely given the patient's MRI lesions. The patient had a lumbar puncture, which results showed an increased IgG index and oligoclonal bands as well as an elevated IgG level. No other significant abnormalities. No increased protein or glucose. No blood or significant leukocytosis. Negative VRDL. Angiotensin-converting enzyme, lyme, NMO, aquaporin IgG pending. ESTRELLA negative. The patient had a urine culture, which was negative. CSF culture as negative. The patient was started on high dose Solu-Medrol, which he tolerated well. The patient stated that the numbness and tingling particularly on her right side improved as well as the tightness around her abdomen improved on her right side, but not on her left. The patient had no neurological deficits while in the hospital. The patient was able to ambulate well. The patient had elevated glucoses while in the hospital probably due to steroid therapy. The patient had no other significant laboratory abnormalities. The patient felt well to send home on 05/26. The patient had normal vitamin D level while in the hospital at 49. PHYSICAL EXAMINATION ON THE DAY OF DISCHARGE: General: The patient is a 37- year- old female who appears stated age and sitting comfortably in bed, in no acute distress. Vital signs at the time of discharge: Temperature 98.9, pulse rate 79, respiratory rate 20, oxygen saturation 99% on room air, blood pressure 145/89. HEENT: Head normocephalic, atraumatic. Sclerae anicteric. No conjunctival injection. Nasal mucosa moist. Oral mucosa moist. No pharyngeal erythema, discharge, or exudate. Neck: Supple, nontender. No lymphadenopathy. No carotid bruit auscultated. No JVD. Cardiac: Regular rate and rhythm. No clicks, murmurs, gallops, or rubs. Pulses 2+ in bilateral dorsalis pedis, posterior tibialis and radial areas. No lower extremity edema noted. No calf tenderness. Respiratory: Clear to auscultation bilaterally. No wheezes, rales, or rhonchi. Good air exchange bilaterally. Abdomen: Obese, soft, nontender, nondistended. Bowel sounds present and normoactive in all 4 quadrants. No hepatosplenomegaly. No abdominal bruits auscultated. Skin: Dry and intact. No rash. Neuro: Cranial nerves II through XII intact. Reflexes are 1+ throughout. No spasticity, normal tone or normal gait, 4/5 strength in the left leg throughout. Cerebellar testing performed without difficulty. Romberg negative. LABORATORY DATA: On the day of discharge: White blood cell count 8.6, hemoglobin 13.0, hematocrit 40, platelet count 319. Sodium 141, potassium 4.2, chloride 109, carbon dioxide 20, anion gap 12, BUN 15, glucose 145, creatinine 0.87, calcium 8.7. Other laboratory data from admission found in HPI. DISCHARGE PLAN: The patient will be discharged to home on a steroid taper, vitamin D2 supplementation as above. The patient should follow up closely with her neurologist, Dr. Felix Floyd, for probably initiation of DMDs therapy. The patient should return to the hospital for any alarming symptoms such as new neurological deficits, shortness of breath, chest pain, fevers that did not respond to medication, loss of bowel or bladder control, syncope or other alarming symptoms. The patient should have a heart-healthy diet, caffeine okay. The patient should avoid NSAID therapy while on steroids. The patient should engage in activity as tolerated. The patient has no functional deficits on discharge. TIME SPENT: Approximately 60 minutes was spent on this discharge, 30 of which were spent [id number] with the patient and obtaining history and physical and discussing treatment plan. KADIE HERNANDEZ [id number]/[facility] #: [id number]
== END 2017-08-07 18:10 | disposition home or self-care (01) | DRG 43 ==
LOC: ED 10:42 → MED 15:56
PROVIDERS: ADMIT Internal Medicine; ATTEND Student in an Organized Health Care Education/Training Program
PROC: 009U3ZX Drainage of Spinal Canal, Percutaneous Approach, Diagnostic (ICD-10-PCS; principal; 2017-08-05)
DX: G35 Multiple sclerosis (principal); G40.B09 Juvenile myoclonic epilepsy, not intractable, without status epilepticus; Z72.89 Other problems related to lifestyle; Z90.49 Acquired absence of other specified parts of digestive tract; Z82.49 Family history of ischemic heart disease and other diseases of the circulatory system; Z83.3 Family history of diabetes mellitus
CPT/HCPCS: 36415; 70553; 72156; 72157; 80048; 80053; 81003; 81015; 82164; 82607; 82652; 82784; 82945; 83605; 83916; 84157; 84443; 84484; 85025; 85610; 85652; 86039; 86235; 86255; 86592; 86618; 87070; 87086; 87205; 89051; 94150; 99284; A9270-GY; A9579; G8978-GP-CI; G8979-GP-CI; G8980-GP-CI; J2930

== ENCOUNTER 2020-06-12 02:30 | Inpatient (IN) ==
[2020-06-12 03:28] LABS: ABS Basophils 0.1 10^3/ul (0-0.2); ABS Eosinophils 0.2 10^3/ul (0-0.6); ABS Monocytes 0.9 10^3/ul (0-0.8); ABS Neutrophils 15.9 10^3/ul (1.5-7.7); ABS Nucleated RBC 0.1 10^3/ul; Eosinophil % 0.9 %; Hematocrit 36 % (35-47); Hemoglobin 11.3 g/dL (12.0-16.0); Mean Corpuscular HGB Conc 32 g/dL (31-36); Mean Corpuscular Hemoglobin 27 pg (27-31); Mean Corpuscular Volume 86 fL (80-97); Nucleated Red Blood Cells % 0.7; Platelet Count 272 10^3/uL (150-450); Red Blood Count 4.15 10^6 /uL (3.70-4.87); Red Cell Distribution Width 20 % (10-15)
[2020-06-12 03:36] LABS: Activated Partial Thrombo Time 19.5 seconds (26.0-38.0); INR 0.97 (0.82-1.09)
[2020-06-12 03:44] LABS: ALT 24 U/L (7-52); AST 25 U/L (13-39); Albumin 4.1 g/dL (3.2-5.2); Albumin/Globulin Ratio 1.4 (1-3); Alkaline Phosphatase 121 U/L (34-104); Anion Gap 16 mmol/L (2-11); Blood Urea Nitrogen 15 mg/dL (6-24); C Reactive Protein 82.49 mg/L (<8.01); CO2 Carbon Dioxide 19 mmol/L (22-32); Calcium 9.2 mg/dL (8.6-10.3); Chloride 101 mmol/L (101-111); EGFR African American 63.9 (>60); EGFR Non-African American 52.8 (>60); Glucose 189 mg/dL (70-100); Potassium 4.4 mmol/L (3.5-5.0); Sodium 136 mmol/L (135-145); Total Protein 7.1 g/dL (6.4-8.9)
[2020-06-12 04:02] LABS: Troponin I 0.14 ng/mL (<0.03)
[2020-06-12] MEDS ORDERED: Iodixanol (CONTRAST) 320 MG/ML 100 ML SDV IV ONE (04:12)
[2020-06-12] MEDS: Heparin 5000 UNITS/ML 1 mL VIAL IV SCH ×2 (05:23→11:58)
[2020-06-12] MEDS: Heparin DRIP 25,000 UNITS BAG 25,000 UNITS/500 ML BAG IV SCH (05:33)
[2020-06-12 07:14] LABS: Blood Urea Nitrogen 17 mg/dL (6-24); EGFR African American 72.6 (>60)
[2020-06-12] MEDS ORDERED: Perflutren Lipid Microsphere 3 ML VIAL ONE (07:30)
[2020-06-12] MEDS: Lactated Ringers 1000 ml BAG 1,000 ML IV SCH ×2 (08:16→21:24)
[2020-06-12 10:37] LABS: Troponin I 0.27 ng/mL (<0.03)
[2020-06-12 11:33] LABS: Urine Appearance Cloudy; Urine Bacteria Absent (Absent); Urine Bilirubin 1+ (Negative); Urine Blood Negative (Negative); Urine Color Amber; Urine Glucose Negative (Negative); Urine Ketones Trace (Negative); Urine Nitrite Negative (Negative); Urine Protein 2+(100 mg/dL) (Negative); Urine Red Blood Cell 2+(6-10/hpf) (Absent); Urine Squamous Epithelial Cell Present (Absent); Urine Urobilinogen Negative (Negative); Urine White Blood Cell Absent (Absent)
[2020-06-12 11:58] LABS: Urine Specific Gravity > 1.030 (1.010-1.030)
[2020-06-12 12:09] LABS: Troponin I 0.24 ng/mL (<0.03)
[2020-06-12] MEDS: GuaiFENesin DM 100 mg/10 mg in 5 ML UDC PO PRN ×3 (12:20→20:00)
[2020-06-13] MEDS: Heparin DRIP 25,000 UNITS BAG 25,000 UNITS/500 ML BAG IV SCH ×2 (04:18→23:49)
[2020-06-13 04:25] LABS: Hematocrit 32 % (35-47); Mean Corpuscular HGB Conc 32 g/dL (31-36); Mean Corpuscular Hemoglobin 27 pg (27-31); Mean Corpuscular Volume 86 fL (80-97); Mean Platelet Volume 7.9 fL (7.4-10.4); Platelet Count 231 10^3/uL (150-450); Red Blood Count 3.67 10^6 /uL (3.70-4.87); Red Cell Distribution Width 21 % (10-15); White Blood Count 14.4 10^3/uL (3.5-10.8)
[2020-06-13 04:41] LABS: Albumin 3.4 g/dL (3.2-5.2); Albumin/Globulin Ratio 1.2 (1-3); BUN/Creatinine Ratio 19.2 (8-20); Calcium 8.8 mg/dL (8.6-10.3); EGFR Non-African American 82.7 (>60); Globulin 2.8 g/dL (2-4); Magnesium 1.8 mg/dL (1.9-2.7); Phosphorus 4.5 mg/dL (2.5-5.0); Potassium 4.1 mmol/L (3.5-5.0); Total Bilirubin 0.4 mg/dL (0.2-1.0); Total Protein 6.2 g/dL (6.4-8.9)
[2020-06-13] MEDS: GuaiFENesin DM 100 mg/10 mg in 5 ML UDC PO PRN ×5 (05:01→21:08)
[2020-06-13] MEDS ORDERED: Magnesium Sulfate 2 gm BAG 2 GM/50 ML BAG IVPB ONE (06:16)
[2020-06-13] MEDS ORDERED: Influenza VAC *QUAD* 2020-21* 0.5 ML SYRINGE IM ONE (09:00)
[2020-06-13] MEDS ORDERED: Alteplase (100 mg Vial) 100 MG in Premix IV 100 ML IV ONE (14:03)
[2020-06-13] MEDS: Saline NASAL SPRAY 0.65% BTL BOTH NARES PRN (16:22)
[2020-06-13] MEDS: cefTRIAXone 1 gm/50 mL NS BAG 1 GM/50 ML BAG IVPB SCH (20:41)
[2020-06-13] MEDS: Azithromycin 500 mg/250 ml NS 500 MG/250 ML BAG IVPB SCH (21:27)
[2020-06-14] MEDS: GuaiFENesin DM 100 mg/10 mg in 5 ML UDC PO PRN ×4 (03:43→20:47)
[2020-06-14 04:05] LABS: ABS Eosinophils 0.4 10^3/ul (0-0.6); ABS Lymphocytes 3.5 10^3/ul (1.0-4.8); ABS Monocytes 0.6 10^3/ul (0-0.8); ABS Neutrophils 6.7 10^3/ul (1.5-7.7); ABS Nucleated RBC 0.1 10^3/ul; Eosinophil % 3.4 %; Hematocrit 29 % (35-47); Hemoglobin 9.5 g/dL (12.0-16.0); Lymphocyte % 30.9 %; Mean Corpuscular HGB Conc 33 g/dL (31-36); Mean Corpuscular Hemoglobin 28 pg (27-31); Mean Corpuscular Volume 86 fL (80-97); Mean Platelet Volume 7.7 fL (7.4-10.4); Nucleated Red Blood Cells % 0.6; Platelet Count 193 10^3/uL (150-450); Red Blood Count 3.39 10^6 /uL (3.70-4.87); Red Cell Distribution Width 20 % (10-15); White Blood Count 11.2 10^3/uL (3.5-10.8)
[2020-06-14 04:20] LABS: BUN/Creatinine Ratio 15.8 (8-20); Calcium 8.8 mg/dL (8.6-10.3); EGFR African American 103.1 (>60); EGFR Non-African American 85.2 (>60); Magnesium 1.9 mg/dL (1.9-2.7); Phosphorus 4.7 mg/dL (2.5-5.0)
[2020-06-14 04:26] LABS: Potassium 5.3 mmol/L (3.5-5.0)
[2020-06-14] MEDS: Heparin 5000 UNITS/ML 1 mL VIAL IV SCH ×3 (04:42→19:50)
[2020-06-14] MEDS ORDERED: Patiromer POWDER 8.4 GM PAK PO ONE (06:00)
[2020-06-14] MEDS ORDERED: SODIUM ZIRCONIUM CYCLOSILICATE 10 GM PACKET PO ONE (07:45)
[2020-06-14] MEDS ORDERED: Warfarin per PHARMACY **NOTE FOLLOW UP SCH (08:00)
[2020-06-14] MEDS: Saline NASAL SPRAY 0.65% BTL BOTH NARES PRN (08:35)
[2020-06-14] MEDS ORDERED: Dextrose 50% Syringe 50 ml 25 GM/50 ML SYRINGE IV PUSH ONE (10:03)
[2020-06-14 11:34] LABS: INR 1.12 (0.82-1.09)
[2020-06-14 11:50] LABS: Activated Partial Thrombo Time 30.5 seconds (26.0-38.0)
[2020-06-14] MEDS: Heparin DRIP 25,000 UNITS BAG 25,000 UNITS/500 ML BAG IV SCH ×2 (12:24→22:31)
[2020-06-14] MEDS: Iron Sucrose 200 MG in NS 0.9% 100 ml BAG 100 ML IVPB SCH (12:34)
[2020-06-14 12:41] LABS: BUN/Creatinine Ratio 11.8 (8-20); Calcium 9.3 mg/dL (8.6-10.3); EGFR African American 117.2 (>60); EGFR Non-African American 96.8 (>60); Ferritin 48.8 ng/mL (11-307); Potassium 3.9 mmol/L (3.5-5.0)
[2020-06-14 12:42] LABS: % Iron Saturation 11 % (15-55); Iron 50 ug/dL (50-212); Total Iron Binding Capacity 470 mcg/dL (250-450); Transferrin 336 mg/dL (203-362); Unsaturated Iron Binding < 455 ug/dL
[2020-06-14 12:48] LABS: Vitamin B12 437 pg/mL (180-914)
[2020-06-14] MEDS: Cyanocobalamin INJ 1,000 MCG/ML VIAL 1 ML VIAL IM SCH (13:23)
[2020-06-14] MEDS: Oxymetazoline 0.05% NASAL SPR 15 ML BTL BOTH NARES PRN ×2 (16:19→22:35)
[2020-06-14] MEDS: cefTRIAXone 1 gm/50 mL NS BAG 1 GM/50 ML BAG IVPB SCH (20:26)
[2020-06-14] MEDS ORDERED: Oxymetazoline 0.05% NASAL SPR 15 ML BTL BOTH NARES SCH (21:00)
[2020-06-14] MEDS: Azithromycin 500 mg/250 ml NS 500 MG/250 ML BAG IVPB SCH (21:30)
[2020-06-15] MEDS: Ondansetron 4 mg VIAL 2 MG/ML 2 ml VIAL IV PRN ×2 (00:09→21:40)
[2020-06-15] MEDS: GuaiFENesin DM 100 mg/10 mg in 5 ML UDC PO PRN ×5 (02:32→20:42)
[2020-06-15 05:40] LABS: Hematocrit 28 % (35-47); Hemoglobin 9.2 g/dL (12.0-16.0); Mean Corpuscular HGB Conc 33 g/dL (31-36); Mean Corpuscular Hemoglobin 28 pg (27-31); Mean Corpuscular Volume 86 fL (80-97); Mean Platelet Volume 7.2 fL (7.4-10.4); Platelet Count 211 10^3/uL (150-450); Red Cell Distribution Width 20 % (10-15); White Blood Count 12.3 10^3/uL (3.5-10.8)
[2020-06-15 05:51] LABS: INR 1.11 (0.82-1.09)
[2020-06-15 05:58] LABS: ABS Eosinophils 0.4 10^3/ul (0-0.6); ABS Lymphocytes 4.1 10^3/ul (1.0-4.8); ABS Monocytes 0.7 10^3/ul (0-0.8); ABS Neutrophils 7.2 10^3/ul (1.5-7.7); BUN/Creatinine Ratio 10.3 (8-20); Calcium 8.7 mg/dL (8.6-10.3); EGFR African American 117.2 (>60); EGFR Non-African American 96.8 (>60); Eosinophil % 2.9 %; Nucleated Red Blood Cells % 0.1; Potassium 4.2 mmol/L (3.5-5.0)
[2020-06-15] MEDS: Cyanocobalamin INJ 1,000 MCG/ML VIAL 1 ML VIAL IM SCH (07:47)
[2020-06-15] MEDS: Iron Sucrose 200 MG in NS 0.9% 100 ml BAG 100 ML IVPB SCH (07:49)
[2020-06-15] MEDS: Heparin DRIP 25,000 UNITS BAG 25,000 UNITS/500 ML BAG IV SCH (08:45)
[2020-06-15] MEDS: Oxymetazoline 0.05% NASAL SPR 15 ML BTL BOTH NARES PRN (12:00)
[2020-06-15] MEDS: Warfarin DAILY REMINDER **NOTE FOLLOW UP SCH (16:46)
[2020-06-15] MEDS: cefTRIAXone 1 gm/50 mL NS BAG 1 GM/50 ML BAG IVPB SCH (20:46)
[2020-06-15] MEDS: Azithromycin 500 mg/250 ml NS 500 MG/250 ML BAG IVPB SCH (21:37)
[2020-06-16] MEDS: GuaiFENesin DM 100 mg/10 mg in 5 ML UDC PO PRN ×5 (02:24→21:40)
[2020-06-16] MEDS: Heparin DRIP 25,000 UNITS BAG 25,000 UNITS/500 ML BAG IV SCH (03:35)
[2020-06-16 05:59] LABS: Hematocrit 28 % (35-47); Hemoglobin 9.2 g/dL (12.0-16.0); Mean Platelet Volume 7.2 fL (7.4-10.4); Platelet Count 234 10^3/uL (150-450)
[2020-06-16 06:18] LABS: BUN/Creatinine Ratio 8.2 (8-20); Calcium 9.1 mg/dL (8.6-10.3); EGFR Non-African American 89.2 (>60); INR 1.8 (0.82-1.09); Potassium 4.1 mmol/L (3.5-5.0)
[2020-06-16 06:41] LABS: Activated Partial Thrombo Time 117.5 seconds (26.0-38.0)
[2020-06-16] MEDS: Cyanocobalamin INJ 1,000 MCG/ML VIAL 1 ML VIAL IM SCH (08:12)
[2020-06-16] MEDS: Iron Sucrose 200 MG in NS 0.9% 100 ml BAG 100 ML IVPB SCH (08:14)
[2020-06-16 13:18] LABS: Tissue Transglutaminase IgA Ab <1.2 U/mL
[2020-06-16] MEDS: Warfarin DAILY REMINDER **NOTE FOLLOW UP SCH (17:02)
[2020-06-16] MEDS: cefTRIAXone 1 gm/50 mL NS BAG 1 GM/50 ML BAG IVPB SCH (20:50)
[2020-06-16] MEDS: Azithromycin 500 mg/250 ml NS 500 MG/250 ML BAG IVPB SCH (21:36)
[2020-06-16] MEDS: Ondansetron 4 mg VIAL 2 MG/ML 2 ml VIAL IV PRN (21:54)
[2020-06-17] MEDS: Heparin DRIP 25,000 UNITS BAG 25,000 UNITS/500 ML BAG IV SCH (01:42)
[2020-06-17 03:15] LABS: Hematocrit 26 % (35-47); Hemoglobin 8.4 g/dL (12.0-16.0); Platelet Count 227 10^3/uL (150-450)
[2020-06-17 03:22] LABS: Activated Partial Thrombo Time 80.4 seconds (26.0-38.0)
[2020-06-17] MEDS: GuaiFENesin DM 100 mg/10 mg in 5 ML UDC PO PRN ×4 (03:24→19:33)
[2020-06-17 03:29] LABS: BUN/Creatinine Ratio 8.3 (8-20); Calcium 8.9 mg/dL (8.6-10.3); EGFR African American 109.7 (>60); EGFR Non-African American 90.7 (>60); Potassium 4.1 mmol/L (3.5-5.0)
[2020-06-17] MEDS: Cyanocobalamin INJ 1,000 MCG/ML VIAL 1 ML VIAL IM SCH (09:00)
[2020-06-17] MEDS: Iron Sucrose 200 MG in NS 0.9% 100 ml BAG 100 ML IVPB SCH (09:46)
[2020-06-17] MEDS: Warfarin DAILY REMINDER **NOTE FOLLOW UP SCH (17:58)
[2020-06-17] MEDS ORDERED: diPHENhydraMINE 25 mg TAB PO PRN (18:50)
[2020-06-17 20:03] LABS: Tissue Transglutaminase IgG Ab <1.2 U/mL
[2020-06-17] MEDS: cefTRIAXone 1 gm/50 mL NS BAG 1 GM/50 ML BAG IVPB SCH (20:57)
[2020-06-17] MEDS: Azithromycin 500 mg/250 ml NS 500 MG/250 ML BAG IVPB SCH (21:56)
[2020-06-18] MEDS: Heparin 5000 UNITS/ML 1 mL VIAL IV SCH (01:19)
[2020-06-18] MEDS: Heparin DRIP 25,000 UNITS BAG 25,000 UNITS/500 ML BAG IV SCH ×2 (02:11→15:23)
[2020-06-18] MEDS: GuaiFENesin DM 100 mg/10 mg in 5 ML UDC PO PRN ×2 (03:13→16:26)
[2020-06-18 07:23] LABS: Hematocrit 28 % (35-47); Hemoglobin 8.9 g/dL (12.0-16.0); Mean Corpuscular HGB Conc 32 g/dL (31-36); Mean Corpuscular Hemoglobin 28 pg (27-31); Mean Corpuscular Volume 87 fL (80-97); Mean Platelet Volume 7.1 fL (7.4-10.4); Platelet Count 244 10^3/uL (150-450); Red Blood Count 3.19 10^6 /uL (3.70-4.87); Red Cell Distribution Width 20 % (10-15); White Blood Count 12.6 10^3/uL (3.5-10.8)
[2020-06-18 07:38] LABS: BUN/Creatinine Ratio 8.8 (8-20); Calcium 9.1 mg/dL (8.6-10.3); EGFR African American 117.2 (>60); EGFR Non-African American 96.8 (>60); Potassium 4.2 mmol/L (3.5-5.0)
[2020-06-18 07:53] LABS: ABS Eosinophils 0.4 10^3/ul (0-0.6); ABS Monocytes 0.7 10^3/ul (0-0.8); ABS Neutrophils 8.5 10^3/ul (1.5-7.7); Eosinophil % 2.9 %; Lymphocyte % 23.8 %; Nucleated Red Blood Cells % 0.1
[2020-06-18] MEDS: Cyanocobalamin INJ 1,000 MCG/ML VIAL 1 ML VIAL IM SCH (08:43)
[2020-06-18] MEDS: Iron Sucrose 200 MG in NS 0.9% 100 ml BAG 100 ML IVPB SCH (09:33)
[2020-06-18 09:38] LABS: C Reactive Protein 43.59 mg/L (<8.01)
[2020-06-19] MEDS: Heparin DRIP 25,000 UNITS BAG 25,000 UNITS/500 ML BAG IV SCH (05:22)
[2020-06-19] MEDS: Warfarin DAILY REMINDER **NOTE FOLLOW UP SCH ×2 (07:47→17:32)
[2020-06-19] MEDS: Cyanocobalamin INJ 1,000 MCG/ML VIAL 1 ML VIAL IM SCH (08:13)
[2020-06-19] MEDS: Iron Sucrose 200 MG in NS 0.9% 100 ml BAG 100 ML IVPB SCH (08:53)
[2020-06-19 09:38] LABS: ABS Basophils 0.1 10^3/ul (0-0.2); ABS Eosinophils 0.4 10^3/ul (0-0.6); ABS Lymphocytes 2.8 10^3/ul (1.0-4.8); ABS Monocytes 0.7 10^3/ul (0-0.8); ABS Neutrophils 8.4 10^3/ul (1.5-7.7); Hematocrit 28 % (35-47); Mean Corpuscular HGB Conc 32 g/dL (31-36); Mean Corpuscular Hemoglobin 28 pg (27-31); Mean Corpuscular Volume 86 fL (80-97); Mean Platelet Volume 7.3 fL (7.4-10.4); Platelet Count 270 10^3/uL (150-450); Red Blood Count 3.25 10^6 /uL (3.70-4.87); Red Cell Distribution Width 21 % (10-15); White Blood Count 12.3 10^3/uL (3.5-10.8)
[2020-06-19 09:51] LABS: Activated Partial Thrombo Time 66.9 seconds (26.0-38.0); INR 2.25 (0.82-1.09)
[2020-06-19 09:52] LABS: BUN/Creatinine Ratio 7.7 (8-20); Calcium 9.5 mg/dL (8.6-10.3); EGFR African American 123.4 (>60); Potassium 4.1 mmol/L (3.5-5.0)
[2020-06-19] MEDS: GuaiFENesin DM 100 mg/10 mg in 5 ML UDC PO PRN ×2 (13:22→20:58)
[2020-06-20 06:36] LABS: Hematocrit 29 % (35-47); Hemoglobin 9.4 g/dL (12.0-16.0); Mean Platelet Volume 7.1 fL (7.4-10.4); Platelet Count 288 10^3/uL (150-450)
[2020-06-20 06:49] LABS: Activated Partial Thrombo Time 41.3 seconds (26.0-38.0); INR 2.49 (0.82-1.09)
[2020-06-20 07:01] LABS: Calcium 9.3 mg/dL (8.6-10.3); EGFR African American 111.5 (>60); EGFR Non-African American 92.1 (>60); Potassium 4.3 mmol/L (3.5-5.0)
[2020-06-20 14:51] LABS: FACV Specimen Whole Blood
[2020-06-20] MEDS: ceFAZolin 2 GM PREMIX 2 GM/50 ML BAG IVPB SCH ×2 (16:48→23:01)
[2020-06-20] MEDS: GuaiFENesin DM 100 mg/10 mg in 5 ML UDC PO PRN ×2 (17:04→23:54)
[2020-06-20] MEDS: Warfarin DAILY REMINDER **NOTE FOLLOW UP SCH (19:07)
[2020-06-20] MEDS: Ondansetron 4 mg VIAL 2 MG/ML 2 ml VIAL IV PRN (21:55)
[2020-06-20 23:33] LABS: Immunoglobulin A 35 mg/dL (61 - 356)
[2020-06-21 06:18] LABS: Hematocrit 35 % (35-47); Hemoglobin 10.4 g/dL (12.0-16.0); Mean Corpuscular HGB Conc 30 g/dL (31-36); Mean Corpuscular Hemoglobin 28 pg (27-31); Mean Corpuscular Volume 94 fL (80-97); Mean Platelet Volume 7.2 fL (7.4-10.4); Platelet Count 267 10^3/uL (150-450); Red Blood Count 3.67 10^6 /uL (3.70-4.87); Red Cell Distribution Width 21 % (10-15); White Blood Count 11.4 10^3/uL (3.5-10.8)
[2020-06-21 06:30] LABS: INR 2.57 (0.82-1.09)
[2020-06-21 06:34] LABS: Anion Gap 12 mmol/L (2-11); BUN/Creatinine Ratio 8.5 (8-20); Blood Urea Nitrogen 6 mg/dL (6-24); C Reactive Protein 30.52 mg/L (<8.01); CO2 Carbon Dioxide 23 mmol/L (22-32); Calcium 9.1 mg/dL (8.6-10.3); Chloride 102 mmol/L (101-111); EGFR African American 111.5 (>60); EGFR Non-African American 92.1 (>60); Glucose 110 mg/dL (70-100); Sodium 137 mmol/L (135-145)
[2020-06-21 06:37] LABS: ABS Eosinophils 0.4 10^3/ul (0-0.6); ABS Lymphocytes 2.6 10^3/ul (1.0-4.8); ABS Monocytes 0.6 10^3/ul (0-0.8); ABS Neutrophils 7.8 10^3/ul (1.5-7.7); Eosinophil % 3.5 %; Lymphocyte % 22.6 %; Nucleated Red Blood Cells % 0.2
[2020-06-21] MEDS: ceFAZolin 2 GM PREMIX 2 GM/50 ML BAG IVPB SCH (09:10)
[2020-06-21 13:26] VITALS: BP 155/88
== END 2020-06-21 13:30 | disposition home or self-care (01) | DRG 134 ==
LOC: ED 02:30 → ICU 05:43 → MEDTELE 06-15 12:30
PROVIDERS: ADMIT Student in an Organized Health Care Education/Training Program; ATTEND Internal Medicine